=== PATIENT | female | born 1985 | race Caucasian/White ===

== ENCOUNTER 2019-12-07 14:15 | Emergency (ER) | payer OTHER ==
[~2019-12-07] VITALS: Ht 175.3 cm; Wt 107.0 kg
[2019-12-07] MEDS ORDERED: Norco 5-325 Ta1 EACH PO (15:03)
== END 2019-12-07 15:49 | disposition home or self-care (01) ==
LOC: ER 14:15
DX: G89.18 Other acute postprocedural pain (principal); M25.561 Pain in right knee; Z88.5 Allergy status to narcotic agent
CPT/HCPCS: 29505; 73564; 99283-25

== ENCOUNTER 2021-09-12 06:50 | Day surgery (SDC) | payer OTHER ==
[2021-09-10 10:06] LABS: BASOPHILS ABSOLUTE AUTO 0.05 K/mm3 (0.00-0.23); BASOPHILS PERCENT AUTO 1 % (0-2); EOSINOPHILS ABSOLUTE AUTO 0.18 K/mm3 (0.00-0.68); EOSINOPHILS PERCENT AUTO 4 % (0-6); Hematocrit 43.9 % (33.0-51.0); Hemoglobin 14.6 g/dL (11.5-16.0); IMMATURE GRAN ABSOLUTE AUTO 0.01 K/mm3 (0.00-0.10); IMMATURE GRAN PERCENT AUTO 0 % (0-1); LYMPHOCYTES ABSOLUTE AUTO 2.36 K/mm3 (0.84-5.20); LYMPHOCYTES PERCENT AUTO 46 % (21-46); MONOCYTES ABSOLUTE AUTO 0.33 K/mm3 (0.16-1.47); MONOCYTES PERCENT AUTO 6 % (4-13); Mean Corpuscular HGB Conc 33.3 g/dL (31.5-36.5); Mean Corpuscular Volume 93 fL (80-100); Mean Platelet Volume 9.7 fL (9.1-12.4); NEUTROPHILS ABSOLUTE AUTO 2.21 K/mm3 (1.96-9.15); NEUTROPHILS PERCENT AUTO 43 % (41-73); Platelet Count 243 K/mm3 (150-400); RDW Standard Deviation 41.6 fL (35.1-46.3); Red Blood Cell Count 4.71 M/mm3 (3.80-5.20); White Blood Cell Count 5.14 K/mm3 (4.00-11.30)
[2021-09-10 10:09] LABS: Anion Gap 8 mmol/L (6-16); Blood Urea Nitrogen 12 mg/dL (8-24); Bun/Creatinine Ratio 18.2 (12.0-20.0); CO2, Blood 24 mmol/L (21-32); Calcium, Blood 9.5 mg/dL (8.5-10.1); Chloride, Blood 102 mmol/L (98-108); Creatinine, Blood 0.66 mg/dL (0.40-1.00); Glomerular Filtration Rate >60 (60-); Glucose, Blood 272 mg/dL (70-99); Potassium, Blood 4.1 mmol/L (3.5-5.5); Sodium, Blood 134 mmol/L (136-145)
[~2021-09-12 06:50] MED LIST: Aygestin5 MG PO; CATAPRES0.1 MG PO; EUTHYROX25 MC1 PO; IBUP800 PO; Norco 5-325 Ta1 EACH PO; TRAZ50 PO
--- NOTE | 2021-09-12 08:28 | NUR ---
PT CAME TO DAY SURGERY TODAY AFTER BEING NEWLY DIAGNOSED TYPE II DIABETIC THREE DAYS AGO. A1C ON CHART IS 11.1 AND CHEM BG FROM BEDSIDE DRAW WAS 285. DR. KIMBLE HAD CONCERNS ABOUT ELEVATED BLOOD SUGAR AND A1C, CONSULTED WITH DR. SCHMID AND TOGETHER WITH THE PATIENT THEY DECIDED TO CANCEL THE PROCEDURE FOR SAFETY PURPOSES UNTIL BLOOD SUGAR IS CLOSER TO WITHIN NORMAL LIMITS. PT VERY UNDERSTANDING. DR. SCHMID TO REEVALUATE IN OCTOBER.
== END 2021-09-12 23:18 | disposition home or self-care (01) ==
LOC: ORSCMMR 06:50 → ORD 08:30 → ORSCMMR 08:30
PROVIDERS: Obstetrics & Gynecology
DX: N92.0 Excessive and frequent menstruation with regular cycle (principal); N94.6 Dysmenorrhea, unspecified; F25.0 Schizoaffective disorder, bipolar type; N81.2 Incomplete uterovaginal prolapse; E11.9 Type 2 diabetes mellitus without complications; Z53.9 Procedure and treatment not carried out, unspecified reason
CPT/HCPCS: 36415; 80048; 82947; 84703; 85025; 86850; 86900; 86901; J1100; J1885; J2250; J2405; J2704; J3010; J7120

== ENCOUNTER 2021-12-12 07:04 | Day surgery (SDC) | payer OTHER ==
[~2021-12-12] VITALS: Ht 175.3 cm; Wt 110.9 kg
[~2021-12-12 07:04] MED LIST changes: +GLIP5 PO; +METF500 PO; +Percocet 5-3251 EACH PO; +Zofran4 MG PO
--- NOTE | 2021-12-12 09:27 | NUR ---
12/12/21 0927 Sharona Ortiz PRIOR TO SURGERY START LEBRON TABLE IN PLACE AND SECURE TO PROTECT PATIENT'S FACE,HEAD, AND INTUBATION TUBE.
--- NOTE | 2021-12-12 12:11 | NUR ---
PT. TO ROOM #[id number] AT 1150 VIA [place]. IVF INFUSING. PT. C/O NAUSEA AFTER TRANSFER AND ZOFRAN GIVEN PER ORDER. CALL LIGHT PLACED IN REACH.
--- NOTE | 2021-12-12 14:27 | NUR ---
PATIENT MORE ALERT AT THIS TIME, DENIES NAUSEA, ZOFRAN EFFECTIVE AND PT. HAS TAKEN FEW BITES OF JELLO. PATIENT REQUEST PAIN MED EARLIER AND NORCO GIVEN, VERBALIZE RELIEF. ABODMEN INCSIONS X 3 WELL APPROXIMATED WITH DERMABOND.
--- NOTE | 2021-12-12 15:48 | NUR ---
PATIENT TAKING PO, JUST WATER AND JELLO AT THIS TIME. UP TO TRY AND VOID, TOLERATE WELL TO BATHROOM. PATIENT HAD SMALL DRIBBLE AND SCANT BLOOD, FLORES PAD CHANGED. DID NOT HAVE TRUE VOID AT THIS TIME BUT STATES SHE HAS NO DISCOMFORT OR GREAT URGE TO GO. IVF (LR) INFUSED AND IV SALINE LOCKED. (X2). BACK TO BED AND PT. FEELS SLIGHTLY NAUSEATED WITH MOVEMENT. RESTING AT THIS TIME, VERBALIZE RELIEF OF ABD DISCOMFORT WITH NORCO GIVEN EARLIER WITH JELLO.
--- NOTE | 2021-12-12 18:22 | NUR ---
PT. STATES SHE STILL DOES NOT FEEL SHE HAS TO VOID. NO DISTENTION NOTED. VERBALIZES RELIEF OF PAIN WTIH ONE NORCO. HAD NO APPETITE FOR DINNER, HOWEVER TAKING CRACKERS AND JELLO. DRINKING WATER AT THIS TIME, IS ON HER 3RD GLASS. DID BLADDER SCAN HER AT THIS TIME FOR 177ML. IVF STOPPED AFTER LR FINISHED TODAY. NAUSEA HAS SUBSIDED.
--- NOTE | 2021-12-13 05:08 | NUR ---
ALERT AND ORIENTED X;S 4. MEDICATED WITH NORCO 5/325MG X'2 FOR PAIN MANAGEMENT, EFFECTIVE RELIEF. AMBULATING TO BATHROOM WITH STANDBY ASSIST. VOIDING WITH NO DIFFICULTIES. TOLERATING FLUIDS WELL. SAFETY MAINTAINED, CALL [place]O IN REACH.
--- NOTE | 2021-12-13 09:39 | NUR ---
PT. DISCHARGED AT 0912 THIS A.M.. ATE BREAKFAST, DENIES NAUSEA. VOIDING WITHOUT DIFFICULTY. STATES PAIN IS UNDER CONTROL AND VERBALIZE DESIRE TO LEAVE. DISHCARGE INSTRUCTIONS EXPLAINED AND PT. VERBALIZE UNDERSTANDING, COPY SENT WITH PATIENT. IV REMOVED RUE. W/C TO EXIT WITH PERSONAL BELONGINGS. HERE TO TAKE PT. HOME.
== END 2021-12-13 09:17 | disposition home or self-care (01) ==
LOC: ORSCMMR 07:04 → SURS 07:04 → ORSCMMR 07:05 → ORD 08:30 → ORSCMMR 08:30 → SURS 11:47 → ORSCMMR 12-13 09:17
PROVIDERS: Obstetrics & Gynecology
PROC: 8E0W4CZ Robotic Assisted Procedure of Trunk Region, Percutaneous Endoscopic Approach (ICD-10-PCS; principal; 2021-12-12 08:30)
PROC: 0UQ24ZZ Repair Bilateral Ovaries, Percutaneous Endoscopic Approach (ICD-10-PCS; principal; 2021-12-12 08:30)
PROC: 0UT94ZZ Resection of Uterus, Percutaneous Endoscopic Approach (ICD-10-PCS; principal; 2021-12-12 08:30)
PROC: 0UT74ZZ Resection of Bilateral Fallopian Tubes, Percutaneous Endoscopic Approach (ICD-10-PCS; principal; 2021-12-12 08:30)
DX: D25.0 Submucous leiomyoma of uterus (principal); N81.2 Incomplete uterovaginal prolapse; N92.0 Excessive and frequent menstruation with regular cycle; N94.6 Dysmenorrhea, unspecified; N84.0 Polyp of corpus uteri; K66.0 Peritoneal adhesions (postprocedural) (postinfection); E11.9 Type 2 diabetes mellitus without complications; E03.9 Hypothyroidism, unspecified; E66.9 Obesity, unspecified; Z68.36 Body mass index [BMI] 36.0-36.9, adult; Z79.84 Long term (current) use of oral hypoglycemic drugs
CPT/HCPCS: 58571; 57425; 58679; S2900; 36415; 80048; 82947; 84703; 85025; 86850; 86900; 86901; 88307; A9270; J0690; J1100; J1885; J2250; J2405; J2704; J2710; J3010; J7120

== ENCOUNTER → 2023-04-06 | Outpatient (CLI) | payer OTHER | END | disposition home or self-care (01) | LOC: LAB 16:30 → LAB SHORT 16:30 | DX: R35.0 Frequency of micturition (principal) | CPT/HCPCS: 87077; 87086; 87186 ==

== ENCOUNTER → 2023-11-09 | Outpatient (CLI) | payer OTHER ==
[2023-11-09 13:59] LABS: Creatinine, Urine Random 42.3 mg/dL (27.00-270.00); Microalbumin, Random Urine 5.21 mg/L (0.000-20.000)
== END | disposition home or self-care (01) ==
LOC: LAB SHORT 11:19 → LAB 11:19
PROVIDERS: Family Medicine
DX: E11.9 Type 2 diabetes mellitus without complications (principal)
CPT/HCPCS: 82043; 82570

== ENCOUNTER → 2024-12-06 | Outpatient (CLI) | payer OTHER ==
[2024-12-06 20:22] LABS: Creatinine, Urine Random 40.9 mg/dL (27.00-270.00); Microalb/Creat Ratio UR, Rand 13.668 mg/g (0.000-30.000); Microalbumin, Random Urine 5.59 mg/L (0.000-20.000)
== END | disposition home or self-care (01) ==
LOC: LAB 18:43 → LAB SHORT 18:43
PROVIDERS: Family Medicine
DX: E11.9 Type 2 diabetes mellitus without complications (principal)
CPT/HCPCS: 82043; 82570